=== PATIENT | male | born 1975 | race African-American/Black ===

== ENCOUNTER → 2017-05-11 | Outpatient (CLI) | payer OTHER ==
--- NOTE | 2017-05-11 16:55 | XR ---
First digit right hand HISTORY: Pain 3 views of the first digit of the right hand No comparisons Bone mineralization, joint spaces and alignment are maintained. No radio opaque foreign body. IMPRESSION: No significant abnormality is evident.
== END | disposition home or self-care (01) ==
LOC: RADXRMAIN 15:54
PROVIDERS: ATTEND Emergency Medicine
DX: S63.601A Unspecified sprain of right thumb, initial encounter (principal)

== ENCOUNTER → 2019-03-10 | Outpatient (CLI) | payer BC ==
--- NOTE | 2019-03-10 20:28 | CONS ---
CONSULTATION DATE OF SERVICE: 03/10/2019. 44-year-old gentleman has been evaluated in [facility] for possible obstructive sleep apnea-hypopnea syndrome. HISTORY OF PRESENT ILLNESS/SLEEP WAKE EVALUATION: SLEEP SCHEDULE: Patient usual sleep schedule from 10 p.m. to 5 a.m. on working days and from 10 p.m. to 9:00 am on weekends. FALLING ASLEEP: Usually no problems with falling asleep, although he has TV set in bedroom. DURING SLEEP: He sleeps on the side and stomach position with loud snoring and witnessed episodes of stopped breathing during the sleep by his girlfriend. The patient sometimes wakes up from sleep, also with panic attacks. DURING THE DAY/SLEEP WAKE EVALUATION: During the day, he has episodes of claustrophobia, worry about his sleep. Usually he does not take naps. Walsh Sleepiness Scale is 7. No history of hypnagogic hallucinations, sleep paralysis or cataplexy. PAST MEDICAL HISTORY: Positive for hypertension, some restriction of nasal breathing. PAST SURGICAL HISTORY: Right thumb surgery. MEDICATIONS: Amlodipine, benazepril. SOCIAL HISTORY: Negative for smoking. Alcohol consumption occasional. FAMILY HISTORY: Hypertension, arthritis, snoring, cancer. REVIEW OF SYSTEMS: Multiple awakenings from sleep. PHYSICAL EXAM: gentleman without distress. BP 131/83, HR 77, RR 16, height 6 feet 1 inch, weight 246 pounds. Body mass index 32.4, temperature 97.2, oxygen saturation at room air 97%. Oropharynx extremely low position of soft palate. Mallampati 4. Wide neck 16-3/4 inches in circumference, restriction of nasal breathing, especially on the left side. Neck Supple, no JVD. Thyroid is not palpable. LUNGS Clear to percussion and to auscultation. Good air exchange. No wheezing or rhonchi. HEART S1, S2 regular. No murmurs, gallops, or rubs. ABDOMEN Soft and nontender. Bowel sounds are present. No organomegaly appreciated. EXTREMITIES No clubbing or cyanosis. APPEALS ASSISTANT Awake, alert, and oriented X3. Cranial nerves 2 to 7 intact. There is no fasciculation or atrophy. noted. No focal deficits observed. IMPRESSION: 1. Snoring, witnessed episodes of stopped breathing during sleep, multiple awakenings from sleep, extremely low position of soft palate Mallampati IV, wide neck, obstructive sleep apnea-hypopnea syndrome. 2. History of awakenings with panic attacks. 3. Hypertension. 4. Restriction of nasal breathing. 5. Status post right thumb surgery. PLAN: 1. Home sleep apnea test. 2. Polysomnography for evaluation of patient's breathing during sleep. 3. CPAP/BiPAP titration if sleep study confirms obstructive sleep apnea-hypopnea syndrome. 4. Preferable position during sleep on the side. 5. No driving if patient feels any sleepiness. 6. I will see patient for follow up visit to explain results of testing and following plan. Thank you very much for referring this patient for consultation. Sincerely, Vishnu Zhao MD, PhD, FAASM Diplomat of [employer] [facility] Tennyson CHELSEY / KATIUSKA: [id number] /
== END ==
LOC: SLEEP 13:37
PROVIDERS: ATTEND Internal Medicine
DX: G47.33 Obstructive sleep apnea (adult) (pediatric) (principal); F41.0 Panic disorder [episodic paroxysmal anxiety]; I10 Essential (primary) hypertension; J98.8 Other specified respiratory disorders; Z98.890 Other specified postprocedural states; Z79.899 Other long term (current) drug therapy
CPT/HCPCS: 99211

== ENCOUNTER → 2021-10-18 | Outpatient (CLI) | payer BC ==
--- NOTE | 2021-10-19 03:05 | MR ---
EXAMINATION TYPE: MR shoulder RT wo con DATE OF EXAM: 10/18/2021 COMPARISON: None HISTORY: Right shoulder pain. Multiplanar multiecho imaging of the right shoulder without contrast. Biceps tendon is intact. Subscapularis tendon is intact. There is moderate shoulder joint effusion. T here is thickening and increased signal in the supraspinatus tendon. There is a small full-thickness defect of the supraspinatus tendon on coronal image 14. There is some spurring at the AC joint withou t significant subacromial impingement. The glenoid ulises appear intact. There is no evidence of a fra cture. There is minimal spurring of the humeral head. IMPRESSION: Small full-thickness tear of the supraspinatus tendon. Thickening and increased signal in the suprasp inatus tendon consistent with moderate tendinitis. No retraction. Shoulder joint effusion and small s ubdeltoid effusion.
== END | disposition home or self-care (01) ==
LOC: RADMRIMAIN 19:59
PROVIDERS: ATTEND Orthopaedic Surgery
DX: M75.111 Incomplete rotator cuff tear or rupture of right shoulder, not specified as traumatic (principal); M25.411 Effusion, right shoulder; M67.813 Other specified disorders of tendon, right shoulder

== ENCOUNTER → 2021-11-18 | Outpatient (CLI) | payer BC ==
[2021-11-18 23:13] LABS: Basophils # (A) 0.02 X 10*3/uL (0.00-0.10); Basophils % (A) 0.2 %; Eosinophils # (A) 0.21 X 10*3/uL (0.04-0.35); Eosinophils % (A) 2.5 %; HGB 12.5 g/dL (13.0-17.0); Immature Grans, Automated 0.5 %; Lymphocytes # (A) 2.64 X 10*3/uL (0.90-5.00); Lymphocytes % (A) 31.6 %; MCH 27.1 pg (27.0-32.0); MCHC 32.1 g/dL (32.0-37.0); MCV 84.4 fL (80.0-97.0); Mean Platelet Volume 9.6 fL (9.5-12.2); Monocytes # (A) 0.59 X 10*3/uL (0.20-1.00); Monocytes % (A) 7.1 %; NRBC Per 100 WBC 0 /100 WBCS (0.0-0.0); Neutrophils # (A) 4.86 X 10*3/uL (1.80-7.70); Neutrophils % (A) 58.1 %; Platelet Count 353 X 10*3/uL (140-440); RBC 4.62 X 10*6/uL (4.40-5.60); RDW 13.3 % (11.5-14.5); WBC 8.36 X 10*3/uL (4.50-10.00)
[2021-11-19 00:01] LABS: Anion Gap 13.3 mmol/L (10.00-18.00); Carbon Dioxide 23.1 mmol/L (20.0-27.5); Potassium 4.3 mmol/L (3.5-5.5)
== END | disposition home or self-care (01) ==
LOC: LABPAT 16:06
PROVIDERS: ATTEND Orthopaedic Surgery
DX: Z01.812 Encounter for preprocedural laboratory examination (principal); M75.41 Impingement syndrome of right shoulder
CPT/HCPCS: 36415; 80051; 85025

== ENCOUNTER 2021-11-28 05:55 | Day surgery (SDC) | payer BC ==
[2021-11-27 08:25] VITALS: BMI 31.2
--- NOTE | 2021-11-27 16:39 | HP ---
HISTORY AND PHYSICAL DATE OF SURGERY: 11/28/2021 Sukh Ordonez is a 46-year-old gentleman seen with progressive right shoulder pain. Options were discussed. He elected to proceed with right shoulder arthroscopy. Consent was obtained. PAST MEDICAL HISTORY: Hyperlipidemia, hypertension. PAST SURGICAL HISTORY: Noncontributory. DAILY MEDICATIONS: Amlodipine, fenofibrate. ALLERGIES: NONE. SOCIAL HISTORY: He denies current tobacco use. PHYSICAL EVALUATION OF THE RIGHT SHOULDER: Flexion is 110 degrees. Abduction is 90 degrees. External rotation is 40 degrees with some weakness. Tenderness along the anterolateral acromion and rotator cuff insertion site. Impingement is positive at 90 degrees. Drop-arm sign is positive. Cross-body adduction sign is positive. Distal neurovascular exam is intact. Right shoulder radiographs revealed a type 2 acromion and cystic changes of the tuberosity. Right shoulder MRI revealed a rotator cuff tendon tear. IMPRESSION: Right shoulder impingement with rotator cuff tear. PLAN: Right shoulder arthroscopy with subacromial decompression, arthroscopic rotator cuff repair and debridement. MMODL / IJN: [id number] /
[~2021-11-28 05:55] MED LIST: DEXAMETHASONE SOD PHOSPHATE 4 MG/ML 1 ML VIAL IV ONE; LACTATED RINGERS 1,000 ML IV SCH; MIDAZOLAM 2 MG/2 ML VIAL IV PRN; ONDANSETRON 4 MG/2 ML VIAL IVP ONE; SCOPOLAMINE 1.5MG/72HR PATCH TRANSDERM ONE
[2021-11-28] MEDS ORDERED: LIDOCAINE 1% (10MG/ML) FOR IV START INTRADERMA ONE (06:43)
[2021-11-28] MEDS ORDERED: HYDROmorphone 0.5 MG/0.5 ML SYRINGE IVP PRN (07:00)
[2021-11-28] MEDS ORDERED: fentaNYL (PF) 50 MCG/ML 2 ML AMP IV ONE (07:01)
[2021-11-28] MEDS ORDERED: fentaNYL (PF) 50 MCG/ML 2 ML AMP ONE (07:19)
[2021-11-28] MEDS ORDERED: ROCURONIUM 10 MG/ML (5 ML VIAL) IV ONE (07:19)
[2021-11-28] MEDS ORDERED: SUCCINYLCHOLINE CHLORIDE 100 MG/5 ML SYR IV ONE (07:19)
[2021-11-28] MEDS ORDERED: GLYCOPYRROLATE 0.2 MG/ML 2 ML VIAL ONE (07:19)
[2021-11-28] MEDS ORDERED: PROPOFOL 10 MG/ML 20 ML VIAL IV ONE (07:19)
[2021-11-28] MEDS ORDERED: LIDOCAINE 1% INJ 10MG/ML (20 ML MDV) ONE (07:19)
[2021-11-28] MEDS ORDERED: ROPIVACAINE 5 MG/ML 30 ML VIAL ONE (07:19)
[2021-11-28] MEDS ORDERED: NEOSTIGMINE 1 MG/ML 10 ML VIAL ONE (07:19)
--- NOTE | 2021-11-28 08:08 | P.ANPRN ---
Procedure Note - Anesthesia - Nerve Block Performed Right Interscalene Time Out Performed: Yes (07:) Date of Procedure: 11/28/21 Procedure Start Time: Procedure Stop Time: :12 Location of Patient: PreOp Indication: Acute Post-Operative Pain, Requested by Surgeon (Dr Burger) Sedation Type: Sedate with meaningful contact maintained Preparation: Sterile Prep Position: Supine Catheter: None Needle Types: Pajunk Needle Gauge: Other (see comment) (22g) Ultrasound used to visualize needle placement: Yes Ultrasound used to observe medication spread: Yes Injectate: 0.5% Ropivacaine (see comment for volume) (20cc) Blood Aspirated: No Pain Paresthesia on Injection Noted: No Resistance on Injection: Normal Image Stored and Saved: Yes Events: Uneventful and Well Tolerated
--- NOTE | 2021-11-28 08:59 | P.OP ---
Date of Procedure: 11/28/21 Preoperative Diagnosis: Right shoulder impingement Postoperative Diagnosis: 1. Right shoulder rotator cuff tear 2. Right shoulder impingement syndrome 3. Right shoulder partial long head biceps tendon tear Procedure(s) Performed: 1. Right shoulder arthroscopic rotator cuff repair 2. Right shoulder arthroscopic subacromial decompression 3. Right shoulder arthroscopic biceps tenotomy Implants: 44.75 Arthrex swivel lock anchors Anesthesia: GETA, regional (Interscalene block) Surgeon: Radu Burger Sign Painter #1: Jaydon Cleary Estimated Blood Loss (ml): 11 Pathology: none sent Condition: stable Disposition: PACU Indications for Procedure: 46-year-old gentleman seen with progressive right shoulder pain. After treatment options were discussed, he elected to proceed with arthroscopy. Operative Findings: See description of procedure Description of Procedure: Patient underwent an interscalene block by department of anesthesia. The patient was then taken to the operative suite. The patient underwent a general anesthetic by the department of anesthesia. The patient was placed into a lateral position and secured. There was appropriate padding of the bony prominence. Right shoulder was then prepped and draped in normal sterile orthopedic fashion. We placed the extremity in 10 pounds of longitudinal traction. A posterior incision was now made for a posterior working portal site. The trocar and cannula were inserted into the glenohumeral joint. Arthroscopy was initiated. Spinal needle was now inserted anteriorly, to ascertain the anterior working portal site. An incision was now made in that area, a trocar was inserted followed by a probe. There was partial tearing and hyperemia involving long head biceps tendon. There was no significant chondromalacia present. The labrum was probed and it was found to be stable. I performed an arthroscopic biceps tenotomy. I again probed the residual labrum and anchor which were both found to be stable. At this point instruments removed from glenohumeral joint. Utilizing the posterior working portal site, the trocar and cannula were inserted into the subacromial space. Arthroscopy initiated. I made an incision 2 fingerbreadths lateral to the acromion. I introduced my trocar followed by my ArthroCare ablator. I now began ablating thick subacromial bursal tissue, which exposed the undersurface of the anterior acromion. There was diminished subacromial space. There was a very prominent anterior acromion. A motorized bur was introduced and a subacromial decompression was performed. I also excised some osteophytes off the inferior aspect of the distal clavicle. The AC joint was visualized and noted to be mildly arthritic. I did not think enough toward a Jad procedure. I turned my attention to the rotator cuff. There was 3 cm rotator cuff tear. I debrided the margins getting down to stable tendon tissue. I introduced my motorized bur and abraded the footprint area, getting some petechial bleeding. I now made an accessory portal site off the lateral aspect of the acromion. I punched 2 holes medial for medial row fixation with the assistance of Santino GAUTAM carefully tapping the punch with a mallet as I held the punch and the camera. I now introduced both anchors into the pre-punched holes and Santino GAUTAM tapped them with the mallet as I held anchors and the camera. Santino GAUTAM now screwed the anchors in place a while I held the anchor guide and camera. All 8 limbs of suture were now passed through good bites of rotator cuff tendon. I now punched 2 holes for lateral row fixation again I held the punch and camera while Santino GAUTAM used a mallet to tap in the punch. We now passed sutures through both anchors and individually I introduced the anchors into the pre-punch holes I held the anchor guide in position with one hand holding the camera with the other hand while Santino GAUTAM tensioned the sutures and screwed in the anchors one at a time. All residual suture limbs were now clipped. We had good compression of the tendon along the entire footprint. Instruments now removed from the portal sites. All portal sites were approximated with nylon suture. Sterile dressings were applied followed by a shoulder immobilizer. Jaydon GAUTAM assisted in this complex case. The patient was awakened, transferred to a bed, and taken to recovery in stable condition.
[2021-11-28 09:09] VITALS: TEMP 97.3
[2021-11-28] MEDS ORDERED: hydrALAZINE HCL 20 MG/ML 1 ML VIAL IVP ONE ×3 (09:44→12:05)
[2021-11-28 10:22] VITALS: RESP 16
[2021-11-28] MEDS ORDERED: HYDROcodone/APAP 10-325MG 1 EACH TAB ONE (11:05)
[2021-11-28] MEDS ORDERED: HYDROcodone/APAP 10-325MG 1 EACH TAB PO ONE (11:08)
[2021-11-28] MEDS ORDERED: hydrALAZINE HCL 20 MG/ML 1 ML VIAL ONE (11:47)
[2021-11-28 12:09] VITALS: BP 177/84; PULSE 93
== END 2021-11-28 12:22 | disposition home or self-care (01) ==
LOC: OR 05:55
PROVIDERS: ATTEND Orthopaedic Surgery
DX: M75.41 Impingement syndrome of right shoulder (principal); M75.101 Unspecified rotator cuff tear or rupture of right shoulder, not specified as traumatic; M25.811 Other specified joint disorders, right shoulder; S46.111A Strain of muscle, fascia and tendon of long head of biceps, right arm, initial encounter; X58.XXXA Exposure to other specified factors, initial encounter; E78.5 Hyperlipidemia, unspecified; I10 Essential (primary) hypertension; Z79.899 Other long term (current) drug therapy
CPT/HCPCS: 64415; 76942; 29826; 29827; C1713 ×2; J2250; J0360; J1100; J2710; J0690; J2405; J2001; J3010; J2795; J0330; J2704

== ENCOUNTER → 2022-04-11 | Outpatient (CLI) | payer OTHER ==
--- NOTE | 2022-04-11 17:09 | XR ---
EXAMINATION TYPE: XR Hip LT and AP Pelvis DATE OF EXAM: 04/11/2022 COMPARISON: NONE HISTORY: Hip pain TECHNIQUE: 3 views FINDINGS: The pelvic ring is intact. Proximal left femur and hip joint appear normal. Sacroiliac join ts are intact. IMPRESSION: Negative pelvis and left hip exam. No fracture.
--- NOTE | 2022-04-11 17:10 | XR ---
EXAMINATION TYPE: XR femur LT DATE OF EXAM: 04/11/2022 COMPARISON: NONE HISTORY: Pain. TECHNIQUE: 4 views FINDINGS: Hip joint is intact. Knee joint appears intact. I see no fracture nor dislocation. Joint sp aces are fairly normal. No pathologic calcifications. IMPRESSION: Negative left femur exam.
== END | disposition home or self-care (01) ==
LOC: RADXRMAIN 16:25
PROVIDERS: ATTEND Emergency Medicine
DX: S76.312A Strain of muscle, fascia and tendon of the posterior muscle group at thigh level, left thigh, initial encounter (principal); X58.XXXA Exposure to other specified factors, initial encounter
CPT/HCPCS: 73502

== ENCOUNTER 2022-08-26 14:37 | Emergency (ER) | payer OTHER, BC ==
--- NOTE | 2022-08-26 15:20 | ED ---
Upper Extremity HPI - General Chief Complaint: Extremity Injury, Upper Stated Complaint: IHS-R hand finger injury Time Seen by Provider: 08/26/22 15:14 Source: patient Mode of arrival: ambulatory Limitations: no limitations - History of Present Illness Initial Comments: Patient is a pleasant 47-year-old -[place] male presenting to the emergency department after accidentally crushing his finger and a dye machine at work earlier this afternoon. He reports catching both his second and third digit on his right hand in the machine. He had immediate pain and swelling to the distal aspect of both digits with lifting of the right nasal. He broke reports impaired range of motion to the distal second digit joint. He denies any injury to any other part of his hand. He states that his tetanus vaccination is up-to-date. He has a past medical history significant for hypertension. - Related Data Home Medications Medication Instructions Recorded Confirmed Fenofibrate [Lofibra] 54 mg PO DAILY 11/27/21 11/28/21 amLODIPine BESYLATE/BENAZEPRIL 1 each PO DAILY 11/27/21 11/28/21 [amLODIPine BESYLATE/BENAZEPRIL 5-40 mg] Previous Rx's Medication Instructions Recorded HYDROcodone/APAP 10-325MG [[place] 1 tab PO Q6HR PRN 3 Days #28 tab 11/28/21 10-325] Cephalexin [Keflex] 500 mg PO Q8HR 7 Days #21 cap 08/26/22 Allergies Allergy/AdvReac Type Severity Reaction Status Date / Time No Known Allergies Allergy Verified 11/28/21 06:19 Review of Systems ROS Statement: Those systems with pertinent positive or pertinent negative responses have been documented in the HPI. ROS Other: All systems not noted in ROS Statement are negative. Past Medical History Past Medical History: Hypertension History of Any Multi-Drug Resistant Organisms: None Reported Past Surgical History: No Surgical Hx Reported Past Psychological History: No Psychological Hx Reported Past Alcohol Use History: Occasional Past Drug Use History: None Reported General Exam Limitations: no limitations General appearance: alert, in no apparent distress Head exam: Present: atraumatic, normocephalic, normal inspection Eye exam: Present: normal appearance, PERRL, EOMI. Absent: scleral icterus, conjunctival injection, periorbital swelling ENT exam: Present: normal exam, mucous membranes moist Neck exam: Present: normal inspection, full ROM Respiratory exam: Absent: respiratory distress, accessory muscle use Cardiovascular Exam: Present: regular rate GI/Abdominal exam: Absent: distended Right Hand Wrist exam: Present: tenderness, swelling, laceration (appx 1 cm minimal depth no indication for suture closure), subungual hematoma (middle finger). Absent: full ROM Back exam: Present: normal inspection Neurological exam: Present: alert, oriented X3, CN II-XII intact Psychiatric exam: Present: normal affect, normal mood Skin exam: Present: other (Edema ecchymosis and laceration as indicated above) Course Vital Signs 08/26/22 15:05 Temperature 98.4 F Pulse Rate 90 Respiratory 16 Rate Blood Pressure 169/108 O2 Sat by Pulse 99 Oximetry - Consultations Consultation #1: Dr. Strong head of store operations orthopedic trauma surgeon notified regarding open fractu re to right middle digit distal phalange. Advised not okay for discharge with follow-up with Dr. Kang in office after cleansing of wound, any necessary closure and splinting. Time: 16:05 Procedures - Orthopedic Splinting/Casting Injury #1 Side: right Upper Extremity Injury Location: finger (right middle) Upper Extremity Immobilizer: finger (other) Medical Decision Making - Medical Decision Making 47-year-old -[place] male presenting with crush injury to third digit right hand with obvious hematoma and nail elevation. Will obtain x-ray to evaluate for fracture. If fracture noted will plan for antibiotics and injury. X-ray of the right hand and fingers image interpreted by me demonstrates a fracture to the distal phalange of the second finger (3rd digit). Kefzol IM Ord ered. Will give IM morphine as well. Orthopedic surgeon patient awaiting callback. Case reviewed with Dr. Strong on-call orthopedic surgeon who advised cleansing wound, continuation of antibiotic therapy and follow-up with Dr. Stratton in the office with splint applied and any closure of any lacerations as needed. Wound cleansed. No lacerations indicative of suture closure at this time. Puncture placed for drainage of nail bed. Nail left intact. Will discharge home in stable condition with splint in place. Finger splint to right middle finger applied by myself after dressing applied by myself. Encouraged completion of antibiotics and will keep off work until cleared by orthopedist. Case discussed with Dr. Solomon - Radiology Data Radiology results: report reviewed, image reviewed X-ray of the right hand impression by radiologist acute mildly displaced fracture of the distal third phalanx Disposition Clinical Impression: Crushing injury of finger, Fracture, finger, open Disposition: HOME SELF-CARE Condition: Stable Instructions (If sedation given, give patient instructions): Finger Fracture (ED) Additional Instructions: Please complete course of antibiotic as prescribed. Please stay off work until cleared by ortho. Keep splint intact to right middle digit. Keep wound clean and dry. Please place with Please return to the Emergency Department if symptoms worsen or any other concerns. Prescriptions: Cephalexin [Keflex] 500 mg PO Q8HR 7 Days #21 cap Is patient prescribed a controlled substance at d/c from ED?: No Referrals: Leo Rios DO [Primary Care Provider] - 1-2 days Cristiano White DO [Doctor of Osteopathic Medicine] - 1-2 days Time of Disposition: 17:03
[2022-08-26] MEDS ORDERED: ceFAZolin 1,000 MG VIAL (IM USE) IM STA (15:41)
--- NOTE | 2022-08-26 15:44 | XR ---
EXAMINATION TYPE: XR hand limited RT DATE OF EXAM: 08/26/2022 3:35 PM INDICATION: Patient age:Male; 47 years old; Reason for study: crush injury to 2 3 rd digit; PHH. COMPARISON: None TECHNIQUE: Frontal, lateral and oblique views of the right hand were obtained. FINDINGS: Acute transverse fracture of the distal phalanx of the third digit with palmar displacement of approximately 6 mm of the distal fracture fragment. No evidence for dislocation. Associated soft tissue swelling of the second and third digits. No radiopaque foreign bodies. IMPRESSION: Acute mildly displaced fracture of the distal third phalanx.
[2022-08-26] MEDS ORDERED: MORPHINE SULFATE 4 MG/ML SYRINGE IM STA (15:47)
[2022-08-26] MEDS ORDERED: LIDOCAINE 1% INJ 10MG/ML (30 ML VIAL-PF) SQ ONE (16:24)
[2022-08-26 17:35] VITALS: BP 165/104; PULSE 91; RESP 18; TEMP 98.6
== END 2022-08-26 17:35 | disposition home or self-care (01) ==
LOC: EC 14:37
DX: S67.192A Crushing injury of right middle finger, initial encounter (principal); I10 Essential (primary) hypertension; Z79.899 Other long term (current) drug therapy; W23.0XXA Caught, crushed, jammed, or pinched between moving objects, initial encounter
CPT/HCPCS: 99284; 96372 ×2; 73120; J2270; J0690; J2001

== ENCOUNTER 2022-09-04 08:09 | Day surgery (SDC) | payer BC, OTHER ==
--- NOTE | 2022-09-04 06:28 | P.HPIM ---
History of Present Illness H&P Date: 09/04/22 Chief Complaint: Right middle finger crush injury Subjective: This is a 47 year old male that presents today for initial evaluation regarding a right middle finger injury that occurred while at work on 08/27/22 when he had is right fingers crushed in a machine. He was seen at [facility] ED and was given a finger splint to wear on the right middle finger. He states the middle finger is the most affected and has pain at the tip of the finger with swelling and bruising. He is RHD. He states he has a history of a right ring finger fracture years ago that was treated conservatively. Physical Examination: RUE: AIN/PIN/Radial/Ulnar/Median motor intact. Radial/Ulnar/Median SILT. 2+/4 Radial/Ulnar pulses palpated. 5/5 APB, 5/5 FDI. Right middle finger subungal hematoma present with angular deformity. FDP intact. Imaging: X-Rays of the right middle finger 2v taken in office today demonstrate 100% displaced distal phalanx fracture with bayonette apposition. X-Rays of the right ring finger 2v taken in office today demonstrate no acute fracture or dislocation. Evidence of healed middle phalanx fracture from old injury. Impression: 1.) Right middle finger open distal phalanx fracture 2.) Right middle finger nailbed laceration Plan: Diagnosis and treatment options were discussed with the patient. I recommend surgical intervention for the patients injury in the form of right middle finger distal phalanx open fracture with nail plate removal and nailbed repair. He recieved antibiotics at the time of injury and will require urgent surgical intervention due to the open nature of his fracture and the fact that he is presenting approximately 1 week after his injury to avoid risks of infection. I anticipate 10 days off of work followed by 4 weeks of left handed work only after surgery. Risks and benefits of surgery including bleeding, infection, damage to surrounding tissue, need for further surgery, residual numbness were discussed and the patient wished to go forward with surgery. The patient is agreeable with this plan. Follow up: Post op -Cristiano White DO Orthopedic Hand/Upper Extremity Surgeon Past Medical History Past Medical History: Hypertension Additional Past Medical History / Comment(s): rt middle finger caught in machine a work. History of Any Multi-Drug Resistant Organisms: None Reported Past Surgical History: No Surgical Hx Reported Additional Past Surgical History / Comment(s): rt shoulder surgery 12/10 scheduled for left shoulder in 10-13 Past Anesthesia/Blood Transfusion Reactions: No Reported Reaction Additional Past Anesthesia/Blood Transfusion Reaction / Comment(s): no blood transfusions Smoking Status: Never smoker - Past Family History Father History Unknown: Yes Family Medical History: Hypertension Medications and Allergies Home Medications Medication Instructions Recorded Confirmed Type amLODIPine BESYLATE/BENAZEPRIL 1 cap PO DAILY 09/02/22 09/03/22 History [amLODIPine BESYLATE/BENAZEPRIL 10-40 mg] hydroCHLOROthiazide 25 mg PO DAILY 09/02/22 09/03/22 History Allergies Allergy/AdvReac Type Severity Reaction Status Date / Time No Known Allergies Allergy Verified 09/03/22 14:47 Physical Exam Osteopathic Statement: *. No significant issues noted on an osteopathic structural exam other than those noted in the History and Physical/Consult. Vitals: Intake and Output 09/03/22 09/03/22 09/04/22 14:59 22:59 06:59 Other: Weight 115.666 kg Thrombosis Risk Factor Assmnt - Choose All That Apply Any of the Below Risk Factors Present?: Yes Each Factor Represents 1 point: Age 41-60 years, Minor surgery planned, Obesity (BMI >25), Varicose veins Other Risk Factors: No Thrombosis Risk Factor Assessment Total Risk Factor Score: 4 Thrombosis Risk Factor Assessment Level: Moderate Risk
[~2022-09-04 08:09] MED LIST changes: -MIDAZOLAM 2 MG/2 ML VIAL IV PRN; -SCOPOLAMINE 1.5MG/72HR PATCH TRANSDERM ONE; +fentaNYL (PF) 50 MCG/ML 2 ML AMP IV PRN
[2022-09-04 08:47] VITALS: TEMP 97.2
[2022-09-04] MEDS ORDERED: BUPIVACAINE (PF) 0.5% 30 ML VIAL INTRAARTIC ONE ×2 (09:35→09:45)
[2022-09-04] MEDS ORDERED: BACITRACIN ZINC 500 UNIT/GM OINT 28.4 GM TUBE TOPICAL ONE (10:14)
[2022-09-04] MEDS ORDERED: LACTATED RINGERS 1,000 ML IV ONE (10:30)
[2022-09-04 10:40] VITALS: RESP 16
[2022-09-04 11:27] VITALS: BP 123/84; PULSE 63
--- NOTE | 2022-09-04 12:14 | P.OP ---
Date of Procedure: 09/04/22 Preoperative Diagnosis: 1.) Right middle finger open distal phalanx fracture 2.) Right middle finger nail bed laceration Postoperative Diagnosis: 1.) Right middle finger open distal phalanx fracture 2.) Right middle finger nail bed laceration Procedure(s) Performed: 1.) Right middle finger open distal phalanx fracture open reduction internal fixation 2.) Right middle finger nail bed laceration repair 3.) Right middle finger nail plate removal Implants: 0.035 K-wire x2 Anesthesia: MAC Surgeon: Cristiano White Pathology: none sent Condition: stable Disposition: PACU Description of Procedure: This is a 47 year old male who had a crush injury to his right middle finger while at work. He presents today for right middle finger distal phalanx fracture ORIF with nailbed repair and nail plate removal. Risks and benefits of surgery were discussed with the patient including bleeding, damage to surrounding tissue, infection, need for further surgery as well as risks of anesthesia including pulmonary embolism and even and the patient wished to proceed with surgical intervention. The patient was seen in the pre-operative area by myself. Consent and H&P were completed and updated. The correct extremity was marked in the pre-operative area by myself and all other questions were answered. Operative Narrative: The patient was brought to the operating room by the department of anesthesia. They remained on the portable stretcher and a rolling hand table was brought to the side of the operative extremity. Pre-operative time out was performed indicating the correct patient, procedure and laterality. All in the room agreed. Pre-operative antibiotics were given prior to skin incision. The patient was then drifted off to sleep by the department of anesthesia. Digital block was performed with 8cc's of 0.5% Lidocaine and 1% lidocaine in a 50:50 mixture. A nonsterile tourniquet was then applied to the operative extremity and the right upper extremity was then prepped and draped in normal sterile fashion. The operative extremity was the exsanguinated with an esmarch bandage and the tourniquet was inflated to 250mmHg. [place] elevator was utilized to remove the nail plate of the right middle finger in atraumatic fashion. 15 blade scalpel was utilized to make longitudinal incisions at the edges of the eponychial fold to create a flap to visualize the germinal matrix. A transverse germinal matrix nailbed laceration was appreciated after elevation of the flap. The fracture site of the distal phalanx was located deep to the intact sterile matrix and was accessed through a small longitudinal split created in the sterile matrix. Fracture site was then opened and debrided of fibrous tissue and hematoma and reduction of the distal phalanx was performed. Under live flouroscopy 0.035 K-wire was inserted across the fracture site with the fracture anatomically reduced. A second 0.035 K-wire was then inserted for rotational stability. Pin edges were then cut. The sterile matrix nailbed incision and the germinal matrix nailbed laceration was repaired with several interrupted 5-0 vicryl sutures in a tension free manner. The wound was then irrigated. Pin caps were placed. The removed nail plate was debrided and trimmed and placed back underneath the eponychial fold. A sterile dressing consisting of adaptic, bacitracin, 4x4's and coban was applied. Tourniquet was let down and the hand had immediate perfusion. The patient was then woken by the department of anesthesia and transferred to PACU in stable condition. Cristiano White D.O. Orthopedic Hand/Upper Extremity Surgeon
== END 2022-09-04 11:59 | disposition home or self-care (01) ==
LOC: OR 08:09
PROVIDERS: ATTEND Orthopaedic Surgery Hand Surgery
DX: S62.632B Displaced fracture of distal phalanx of right middle finger, initial encounter for open fracture (principal); W23.0XXA Caught, crushed, jammed, or pinched between moving objects, initial encounter; I10 Essential (primary) hypertension; Z79.899 Other long term (current) drug therapy; Z82.49 Family history of ischemic heart disease and other diseases of the circulatory system
CPT/HCPCS: 26765; 11760; J1100; J0690; J2405

== ENCOUNTER → 2022-09-16 | Outpatient (CLI) | payer BC ==
[2022-09-16 18:53] LABS: Basophils # (A) 0.03 X 10*3/uL (0.00-0.10); Basophils % (A) 0.3 %; Eosinophils % (A) 2.3 %; HCT 42.1 % (39.6-50.0); HGB 13.9 g/dL (13.0-17.0); Immature Grans, Automated 0.2 %; Lymphocytes # (A) 2.09 X 10*3/uL (0.90-5.00); Lymphocytes % (A) 23.8 %; MCH 27.6 pg (27.0-32.0); MCV 83.5 fL (80.0-97.0); Monocytes # (A) 0.62 X 10*3/uL (0.20-1.00); NRBC Per 100 WBC 0 /100 WBCS (0.0-0.0); Neutrophils # (A) 5.84 X 10*3/uL (1.80-7.70); Neutrophils % (A) 66.4 %; Platelet Count 442 X 10*3/uL (140-440); RBC 5.04 X 10*6/uL (4.40-5.60); RDW 13.4 % (11.5-14.5)
== END | disposition home or self-care (01) ==
LOC: LABPAT 11:54
PROVIDERS: ATTEND Orthopaedic Surgery
DX: Z01.812 Encounter for preprocedural laboratory examination (principal); M75.42 Impingement syndrome of left shoulder
CPT/HCPCS: 80051; 85025; 93005

== ENCOUNTER → 2022-09-18 | Outpatient (CLI) | payer BC ==
[2022-09-18 21:22] LABS: Anion Gap 11.6 mmol/L (10.00-18.00); Carbon Dioxide 25.4 mmol/L (20.0-27.5); Potassium 4.3 mmol/L (3.5-5.5)
== END | disposition home or self-care (01) ==
LOC: LABPAT 09:56
PROVIDERS: ATTEND Orthopaedic Surgery
DX: Z01.812 Encounter for preprocedural laboratory examination (principal); M75.42 Impingement syndrome of left shoulder
CPT/HCPCS: 80051

== ENCOUNTER 2022-10-08 06:46 | Day surgery (SDC) | payer BC ==
[2022-10-02 14:12] VITALS: BMI 31.7
--- NOTE | 2022-10-07 19:25 | HP ---
HISTORY AND PHYSICAL DATE OF SCHEDULED SURGERY: 10/08/2022. HISTORY OF PRESENT ILLNESS: Sukh Ordonez is a 47-year-old patient seen with progressive left shoulder pain. We discussed options for treatment. He elected to proceed with left shoulder arthroscopy. Consent was obtained. PAST MEDICAL HISTORY: Hypertension, hyperlipidemia. SURGICAL HISTORY: Right shoulder arthroscopy. DAILY MEDICATIONS: 1. Amlodipine. 2. Fenofibrate. ALLERGIES: None. SOCIAL HISTORY: Denies tobacco use. PHYSICAL EVALUATION OF THE LEFT KNEE: Flexion is 140 degrees, abduction is 130 degrees, external rotation is 40 degrees. Some pain and weakness. There is tenderness along the anterior lateral acromion rotator cuff insertion. Impingement positive at 90. Cross-body adduction sign is positive. Drop-arm sign is positive. Distal neurovascular exam is intact. RADIOGRAPHS: Left shoulder radiographs revealed a type 2 acromion along with acromioclavicular joint osteoarthritis. A left shoulder MRI revealed rotator cuff tendon tear, acromioclavicular joint osteoarthritis and some impingement. IMPRESSION: 1. Left shoulder impingement with rotator cuff tear. 2. Left shoulder acromioclavicular joint osteoarthritis. 3. Hypertension. 4. Hyperlipidemia. PLAN: Left shoulder arthroscopy with subacromial decompression, arthroscopic rotator cuff repair, Jad procedure and debridement. MMODL / IJN: [id number] /
[2022-10-08] MEDS ORDERED: DEXAMETHASONE SOD PHOSPHATE 4 MG/ML 1 ML VIAL IV ONE (07:05)
[2022-10-08] MEDS ORDERED: ONDANSETRON 4 MG/2 ML VIAL IVP ONE (07:05)
[2022-10-08] MEDS ORDERED: LIDOCAINE 1% (10MG/ML) FOR IV START INTRADERMA PRN (07:05)
[2022-10-08] MEDS ORDERED: SCOPOLAMINE 1 MG/72 HR PATCH TRANSDERM ONE (07:05)
[2022-10-08] MEDS ORDERED: LACTATED RINGERS 1,000 ML IV SCH (07:05)
[2022-10-08] MEDS ORDERED: HYDROmorphone 0.5 MG/0.5 ML SYRINGE IVP PRN (07:05)
[2022-10-08] MEDS ORDERED: fentaNYL (PF) 50 MCG/1 ML VIAL IVP ONE (08:02)
[2022-10-08] MEDS ORDERED: MIDAZOLAM 2 MG/2 ML VIAL IVP ONE (08:02)
[2022-10-08] MEDS ORDERED: PROPOFOL 10 MG/ML 20 ML VIAL IV ONE (08:22)
[2022-10-08] MEDS ORDERED: fentaNYL (PF) 50 MCG/ML 2 ML AMP ONE (08:22)
[2022-10-08] MEDS ORDERED: LIDOCAINE 2% INJ 20 MG/ML (2 ML VIAL) ONE (08:22)
[2022-10-08] MEDS ORDERED: ROCURONIUM 10 MG/ML (5 ML VIAL) IV ONE (08:22)
[2022-10-08] MEDS ORDERED: ROPIVACAINE 5 MG/ML 30 ML VIAL ONE (08:22)
[2022-10-08] MEDS ORDERED: KETOROLAC 30 MG/ML 1 ML VIAL ONE (08:22)
[2022-10-08] MEDS ORDERED: SUCCINYLCHOLINE CHLORIDE 200 MG/10 ML VIAL IV ONE (08:22)
[2022-10-08 10:06] VITALS: TEMP 97.1
--- NOTE | 2022-10-08 10:07 | P.OP ---
Date of Procedure: 10/08/22 Preoperative Diagnosis: Left shoulder impingement Postoperative Diagnosis: 1. Left shoulder rotator cuff tear 2. Left shoulder impingement Procedure(s) Performed: 1. Left shoulder arthroscopic rotator cuff repair 2. Left shoulder arthroscopic subacromial decompression Implants: 44.75 Arthrex swivel lock anchors Anesthesia: GETA, regional (Interscalene block) Surgeon: Radu Burger Sports Journalist #1: Jaydon Cleary Estimated Blood Loss (ml): 11 Pathology: none sent Condition: stable Disposition: PACU Indications for Procedure: 47-year-old gentleman seen with progressive left shoulder pain. After having treatment options discussed, he elected to proceed with arthroscopy. Operative Findings: See description of procedure Description of Procedure: Patient underwent an interscalene block by department of anesthesia. The patient was then taken to the operative suite. The patient underwent a general anesthetic by the department of anesthesia. The patient was placed into a lateral position and secured. There was appropriate padding of the bony prominence. Left shoulder was then prepped and draped in normal sterile orthopedic fashion. We placed the extremity in 10 pounds of longitudinal traction. A posterior incision was now made for a posterior working portal site. The trocar and cannula were inserted into the glenohumeral joint. Arthroscopy was initiated. Spinal needle was now inserted anteriorly, to ascertain the anterior working portal site. An incision was now made in that area, a trocar was inserted followed by a probe. The glenohumeral joint appeared unremarkable. The labrum was stable. The biceps tendon appeared stable with no tearing or hyperemia present. At this point instruments removed from glenohumeral joint. Utilizing the posterior working portal site, the trocar and cannula were inserted into the subacromial space. Arthroscopy initiated. I made an incision 2 fingerbreadths lateral to the acromion. I introduced my trocar followed by my [employer] ablator. I now began ablating thick subacromial bursal tissue, which exposed the undersurface of the anterior acromion. There was diminished subacromial space. There was a very prominent anterior acromion. A motorized bur was introduced and a subacromial decompression was performed. I also excised some osteophytes off the inferior aspect of the distal clavicle. The AC joint was visualized and noted to be mildly arthritic, I did not think enough toward a Jad procedure.. I turned my attention to the rotator cuff. There was a 2.5 cm rotator cuff tear. I debrided the margins getting down to stable tendon tissue. I introduced my motorized bur and abraded the footprint area, getting some petechial bleeding. I now made an accessory portal site off the lateral aspect of the acromion. I punched 2 holes medial for medial row fixation with the assistance of Santino GAUTAM carefully tapping the punch with a mallet as I held the punch and the camera. I now introduced both anchors into the pre- punched holes and Santino GAUTAM tapped them with the mallet as I held anchors and the camera. Santino GAUTAM now screwed the anchors in place a while I held the anchor guide and camera. All 8 limbs of suture were now passed through good bites of rotator cuff tendon. I now punched 2 holes for lateral row fixation again I held the punch and camera while Santino GAUTAM used a mallet to tap in the punch. We now passed sutures through both anchors and individually I introduced the anchors into the pre-punch holes I held the anchor guide in position with one hand holding the camera with the other hand while Santino GAUTAM tensioned the sutures and screwed in the anchors one at a time. All residual suture limbs were now clipped. We had good compression of the tendon along the entire footprint. Instruments now removed from the portal sites. All portal sites were approximated with nylon suture. Sterile dressings were applied followed by a shoulder immobilizer. Jaydon GAUTAM assisted in this complex case. The patient was awakened, transferred to a bed, and taken to recovery in stable condition.
[2022-10-08 11:41] VITALS: BP 157/87; PULSE 73; RESP 18
--- NOTE | 2022-10-08 15:24 | P.ANPRN ---
Procedure Note - Anesthesia - Nerve Block Performed Left Interscalene Single Time Out Performed: Yes (08) Date of Procedure: 10/08/22 Procedure Start Time: :02 Procedure Stop Time: 08:07 Location of Patient: PreOp Indication: Acute Post-Operative Pain, Requested by Surgeon Specifically requested for management of pain by DrSolo: Radu Burger Sedation Type: Sedate with meaningful contact maintained Preparation: Sterile Prep Position: Supine Catheter: None Needle Types: Pajunk Needle Gauge: 21 Ultrasound used to visualize needle placement: Yes Ultrasound used to observe medication spread: Yes Injectate: 0.5% Ropivacaine (see comment for volume) (30cc) Blood Aspirated: No Pain Paresthesia on Injection Noted: No Resistance on Injection: Normal Image Stored and Saved: Yes Events: Uneventful and Well Tolerated
== END 2022-10-08 12:10 | disposition home or self-care (01) ==
LOC: OR 06:46
PROVIDERS: ATTEND Orthopaedic Surgery
DX: M75.102 Unspecified rotator cuff tear or rupture of left shoulder, not specified as traumatic (principal); G89.29 Other chronic pain; M75.42 Impingement syndrome of left shoulder; I10 Essential (primary) hypertension; E78.5 Hyperlipidemia, unspecified; Z98.890 Other specified postprocedural states; Z79.899 Other long term (current) drug therapy
CPT/HCPCS: 29827; 29826; 64415; J2250; J1100; J0690; J2405; J3010

== ENCOUNTER → 2023-08-19 | Outpatient (CLI) | payer OTHER ==
--- NOTE | 2023-08-19 13:30 | XR ---
3 views left shoulder. DATE: 08/19/2023. COMPARISON: None available. MEDICAL HISTORY: Left shoulder pain after trauma. IMPRESSION: There is mild irregularity of the greater tuberosity which likely relates to rotator cuff tendinopath y. The glenohumeral joint space appears preserved. There is no fracture, subluxation or dislocation.
== END | disposition home or self-care (01) ==
LOC: RADXRMAIN 13:11
PROVIDERS: ATTEND Emergency Medicine
DX: S46.912A Strain of unspecified muscle, fascia and tendon at shoulder and upper arm level, left arm, initial encounter (principal); X58.XXXA Exposure to other specified factors, initial encounter

== ENCOUNTER → 2024-09-23 | Outpatient (CLI) | payer BC ==
[2024-09-23 15:34] LABS: HCT 43.2 % (39.6-50.0); HGB 13.7 g/dL (13.0-17.0); MCH 26.7 pg (27.0-32.0); MCHC 31.7 g/dL (32.0-37.0); MCV 84.2 FL (80.0-97.0); NRBC Per 100 WBC 0 X 10*3/uL (0.00-0.01); Platelet Count 364 X 10*3/uL (140-440); RBC 5.13 X 10*6/uL (4.40-5.60); RDW 13.1 % (11.5-14.5); WBC 6.38 X 10*3/uL (4.50-10.00)
[2024-09-23 15:53] LABS: NT-Pro-B-Type Natriuretic Pept <36 pg/mL (0-125)
[2024-09-23 17:42] LABS: ALT 22 U/L (10-49); AST 20 U/L (14-35); Albumin 4.6 g/dL (3.8-4.9); Albumin/Globulin Ratio 1.77 Ratio (1.60-3.17); Alkaline Phosphatase 62 U/L (41-126); BUN/Creat Ratio 12.73 Ratio (12.00-20.00); Calcium 9.7 mg/dL (8.7-10.3); Carbon Dioxide 21.3 mmol/L (21.6-31.8); Chloride 106 mmol/L (96-109); Chol/HDL Ratio 2.17 Ratio; Globulin 2.6 g/dL (1.6-3.3); Glucose 116 mg/dL (70-110); Potassium 4.4 mmol/L (3.5-5.5); Sodium 144 mmol/L (135-145); Total Bilirubin 0.3 mg/dL (0.3-1.2); Total Protein 7.2 g/dL (6.2-8.2)
== END | disposition home or self-care (01) ==
LOC: LABWHC1 09:28
PROVIDERS: ATTEND Student in an Organized Health Care Education/Training Program
DX: I50.9 Heart failure, unspecified (principal); E11.9 Type 2 diabetes mellitus without complications; E78.5 Hyperlipidemia, unspecified; D72.9 Disorder of white blood cells, unspecified; R79.89 Other specified abnormal findings of blood chemistry
CPT/HCPCS: 36415; 80053; 80061; 83036; 83880; 85027

== ENCOUNTER → 2025-03-03 | Outpatient (CLI) | payer OTHER ==
--- NOTE | 2025-03-03 14:12 | XR ---
EXAMINATION TYPE: XR pelvis AP view DATE OF EXAM: 03/03/2025 2:06 PM COMPARISON: None. CLINICAL INDICATION: Male, 49 years old with history of S60.212A CONTUSION OF LEFT WRIST S30.0XXA CON TUSIO, pain TECHNIQUE: AP view(s) obtained. FINDINGS: No acute fracture or dislocation evident. Sacroiliac joints and symphysis pubis appear normal. Femora l heads articulate with the acetabulum. Normal bowel gas is present. Follow-up can be performed as cl inically indicated IMPRESSION: 1. No suspicious acute abnormality AP pelvis. [facility], , 03/03/2025 2:10 PM
--- NOTE | 2025-03-03 14:13 | XR ---
EXAMINATION TYPE: XR lumbar spine 2 or 3V DATE OF EXAM: 03/03/2025 2:06 PM COMPARISON: None. CLINICAL INDICATION: Male, 49 years old with history of S60.212A CONTUSION OF LEFT WRIST S30.0XXA CON TUSIO, pain TECHNIQUE: 3 view(s) obtained. FINDINGS: There are 5 lumbar vertebral bodies. Pedicles are intact. Disc heights are preserved. Vertebral body heights are preserved. Alignment is normal. IMPRESSION: 1. No acute osseous abnormality lumbar spine [facility], , 03/03/2025 2:11 PM
--- NOTE | 2025-03-03 14:13 | XR ---
EXAMINATION TYPE: XR wrist complete LT DATE OF EXAM: 03/03/2025 2:06 PM COMPARISON: None. CLINICAL INDICATION: Male, 49 years old with history of S60.212A CONTUSION OF LEFT WRIST S30.0XXA CON TUSIO, pain TECHNIQUE: 4 view(s) obtained. FINDINGS: No acute fracture or dislocation evident. Joint spaces are preserved. Soft tissues appear normal. If there is pain at the anatomic snuffbox, nuclear medicine bone scan could be performed for addition al evaluation. MRI can be performed for evaluation of soft tissues. IMPRESSION: 1. No acute osseous abnormalities left wrist [facility], , 03/03/2025 2:10 PM
--- NOTE | 2025-03-03 14:16 | XR ---
EXAMINATION TYPE: XR forearm LT DATE OF EXAM: 03/03/2025 2:06 PM COMPARISON: None. CLINICAL INDICATION: Male, 49 years old with history of S60.212A CONTUSION OF LEFT WRIST S30.0XXA CON TUSIO, pain TECHNIQUE: 2 view(s) obtained. FINDINGS: No acute fracture or dislocation. Joint spaces appear preserved. No elevation of the anterior posteri or fat pads are evident. Follow up exams can be performed 7-10 days from acute trauma for continued pain. IMPRESSION: 1. No acute osseous abnormality left forearm. [facility], , 03/03/2025 2:14 PM
== END | disposition home or self-care (01) ==
LOC: RADXRMAIN 13:31
PROVIDERS: ATTEND Emergency Medicine
DX: S60.212A Contusion of left wrist, initial encounter (principal); S30.0XXA Contusion of lower back and pelvis, initial encounter
CPT/HCPCS: 72100; 72170

== ENCOUNTER → 2025-03-13 | Outpatient (CLI) | payer OTHER ==
--- NOTE | 2025-03-13 16:24 | XR ---
EXAMINATION TYPE: XR forearm LT DATE OF EXAM: 03/13/2025 4:17 PM COMPARISON: None. CLINICAL INDICATION: Male, 50 years old with history of S60.212D CONTUSION OF LEFT WRIST, SUBSEQUENT ENCOUNTER, pain TECHNIQUE: 2 view(s) obtained. FINDINGS: No acute fracture or dislocation evident. Joint spaces are preserved. Anterior fat pad is normal. No elevation of the posterior fat pad is evident. Radius aligns normally with the humerus. Very subtle soft tissue swelling may be over the dorsum of the distal forearm. Follow up exams can be performed as clinically indicated. IMPRESSION: 1. No acute osseous abnormality left forearm [facility], , 03/13/2025 4:22 PM
== END | disposition home or self-care (01) ==
LOC: RADXRMAIN 16:06
PROVIDERS: ATTEND Emergency Medicine
DX: S60.212D Contusion of left wrist, subsequent encounter (principal); X58.XXXD Exposure to other specified factors, subsequent encounter